=== PATIENT | female | born 1960 | race Caucasian/White ===

== ENCOUNTER 2016-08-23 04:28 | Emergency (ER) | payer MEDICARE ==
[2016-08-23 05:05] LABS: HEMOGLOBIN 15.5 gm/dl (12.3-15.3); RED BLOOD COUNT 5.14 M/UL (4.00-5.10); WHITE BLOOD COUNT 19.7 K/UL (4.5-11.0)
== END 2016-08-23 06:45 | disposition short-term general hospital (02) ==
LOC: ER1 04:28
PROVIDERS: Specialist/Technologist Athletic Trainer
DX: E11.65 Type 2 diabetes mellitus with hyperglycemia (principal); I10 Essential (primary) hypertension; E66.01 Morbid (severe) obesity due to excess calories; F17.200 Nicotine dependence, unspecified, uncomplicated; Z88.0 Allergy status to penicillin; Z88.5 Allergy status to narcotic agent
CPT/HCPCS: 36415; 51702; 71260; 80053; 81001; 82009; 82550; 82553; 82962; 83874; 84484; 85025; 85610; 85730; 87086; 93005; 96374; 96375; 99285; J1644; J7050; Q9963